=== PATIENT | male | born 1940 | race Caucasian/White ===

== ENCOUNTER 2016-11-14 01:11 | Observation (INO) | payer BC ==
[2016-11-14] VITALS (7 sets, daily range): BP systolic 126–166; BP diastolic 70–84; PULSE 84–92; RESP 16–22; TEMP 97.6–97.8; O2SAT 93–98
[~2016-11-14] VITALS: Ht 170.2 cm; Wt 94.0 kg
[~2016-11-14 01:11] MED LIST: COMB0.2S; DIOV160T60 PO; DORZ1SOL2 OS; GLUCTAB PO; HYDR12.56; OMEP40CA2; PIOG15 PO; PRAV40 PO; ZALE10CA
--- NOTE | 2016-11-14 01:41 | PD ---
HPI Chief Complaint: Syncope/Near-Syncope Time Seen by Provider: 01:17 Travel History International Travel<30 days: No Contact w/Intl Traveler<30days: No Traveled to known affect area: No History of Present Illness HPI 76 year-old male presents to the emergency department from home by EMS transport after syncopal episode. Patient reportedly was up out of bed to go the bathroom and does not recall having a passing out spell. According to senior network engineer report according to the patient's patient was up out of bed to put eyedrops into his eyes and for him so it and she went and saw him unconscious on the floor but he quickly resumed consciousness and was not aware that he had a syncopal episode or how he had fallen onto the floor. Upon senior network engineer arrival patient was noted to have a small laceration to the left posterior occiput region with bleeding controlled. Patient was reportedly estimated to been on the floor for approximately one hour. No active bleeding at the time of evaluation. According to senior network engineer report cervical collar was applied due to mechanisms of injury but not for complaint of pain. Patient was able to perform orthostatic measurements with the paramedics that were is reportedly not significant for variance supine sitting to standing. Patient's had no vomiting. Patient denies any chest pain shortness of breath but has noted swelling to the left upper extremity bilateral lower extremity is. Patient was recently diagnosed with atrial fibrillation and reportedly placed on Eliquis, amiodarone, and diltiazem. Patient does complain of some left elbow pain which she states she's had for some time related to gouty arthritis. Patient at this time denies any head pain neck pain back pain chest pain rib pain shortness of breath abdominal pain or extremity pain but shared with the nurse foot pain 5/10 in intensity. [facility] Past Medical History Narrative Medical Atrial fibrillation, prostate cancer, diabetes, acute renal failure, prostatectomy appendectomy eye surgery; alcohol use; nursing notes reviewed Cancer: Yes (PROSTATE) Cardiovascular Problems: Yes (AFIB) Diabetes: Yes Patient Takes Glucophage: No Diminished Hearing: No Genitourinary: Yes (ARF) Hypertension: Yes Influenza Vaccination: Yes Past Surgical History Appendectomy: Yes Eye Surgery: Yes (DETACTED RETINA) Prostatectomy: Yes Social History Alcohol Use: Yes (4 GLASSES OF WINE PER DAY) Tobacco Use: No Substance Use: No Allergies-Medications (Allergen,Severity, Reaction): Coded Allergies: Iodine (Verified Allergy, Severe, 11/14/16) RESPIRATORY SHOCK Lasix (Verified Allergy, Severe, 11/14/16) Shellfish (Verified Allergy, Severe, Anaphylaxis, 11/14/16) Reported Meds & Prescriptions Reported Meds & Active Scripts Active Reported Eliquis (Apixaban) 5 Mg Tab 5 Mg PO BID Amiodarone (Amiodarone HCl) 200 Mg Tab 200 Mg PO BID Metolazone 5 Mg Tab 5 Mg PO 2XWEEK Omeprazole 40 Mg Cap 40 Mg PO DAILY Prednisone 20 Mg Tab 20 Mg PO DAILY Fluconazole 200 Mg Tab 200 Mg PO DAILY Valacyclovir (Valacyclovir HCl) 500 Mg Tab 500 Mg PO DAILY Review of Systems Except as stated in HPI: all other systems reviewed are Neg General / Constitutional: No: Fever Eyes: No: Visual changes HENT: No: Headaches, Neck Pain Cardiovascular: Positive: Syncope, Edema, No: Chest Pain or Discomfort, Palpitations, Diaphoresis Respiratory: No: Shortness of Breath, Pleuritic Pain Gastrointestinal: No: Nausea, Vomiting, Abdominal Pain Genitourinary: No: Flank Pain Musculoskeletal: Positive: Edema (bilateral lower legs/pedal/left upper extremity), No: Myalgias, Arthralgias Skin: Positive Other (2 cm left posterior occiput laceration), No Rash Neurologic: Positive: Syncope, No: Weakness, Dizziness, Focal Abnormalities, Coordination Problem, Headache, Slurred Speech, Paresthesia, Other Psychiatric: No: Anxiety Hematologic/Lymphatic: Positive: Easy Bruising (Eliquis) Physical Exam Narrative GENERAL: Well-developed well-nourished male in no acute distress no respiratory distress with c-collar in place GCS 15. SKIN: Warm and dry. HEAD: Atraumatic. Normocephalic except for 2 cm linear left posterior occiput laceration without soft tissue swelling bleeding controlled.. EYES: Pupils equal and round. No scleral icterus. No injection or drainage. ENT: No nasal bleeding or discharge. Mucous membranes pink and moist. NECK: Trachea midline. No JVD. Nontender to direct palpation along the cervical spine. CARDIOVASCULAR: Regular rate and rhythm. RESPIRATORY: No accessory muscle use. Clear to auscultation. Breath sounds equal bilaterally. GASTROINTESTINAL: Abdomen soft, non-tender, nondistended. Hepatic and splenic margins not palpable. MUSCULOSKELETAL: Extremities without clubbing, cyanosis, bilateral lower leg and pedal edema as well as left upper extremity edema. No obvious deformities. NEUROLOGICAL: Awake and alert. No obvious cranial nerve deficits. Motor grossly within normal limits. Five out of 5 muscle strength in the arms and legs. Normal speech. PSYCHIATRIC: Appropriate mood and affect; insight and judgment normal. Data Data Last Documented VS Vital Signs Date Time Temp Pulse Resp B/P Pulse Ox O2 Delivery O2 Flow Rate FiO2 11/14/16 02:20 85 16 126/70 98 Room Air 11/14/16 01:24 97.8 Orders Electrocardiogram (11/14/16 01:33) Basic Metabolic Panel (Bmp) (11/14/16 01:33) Complete Blood Count With Diff (11/14/16:33) Magnesium (Mg) (11/14/16:33) Ckmb (Isoenzyme) Profile (11/14/16:33) Troponin I (11/14/16:33) Act Partial Throm Time (Ptt) (11/14/16:33) Prothrombin Time / Inr (Pt) (11/14/16 01:33) Ua Includes Microscopic (11/14/16 01:33) Chest, Single Ap (11/14/16 01:33) Ct Brain W/O Iv Contrast(Rout) (11/14/16 01:33) Ct Cerv Spine W/O Contrast (11/14/16 01:33) Ecg Monitoring (11/14/16 01:33) Iv Access Insert/Monitor (11/14/16 01:33) Oximetry (11/14/16 01:33) Sodium Chloride 0.9% Flush (Ns Flush) (11/14/16 01:45) Vital Signs (Adult) Q4H (11/14/16 02:48) Neuro Checks Q4H (11/14/16 02:48) Activity Bed Rest With Brp (11/14/16 02:48) Payment Manager / Telemetry .CONTINUOUS (11/14/16 02:48) Diet Heart Healthy (11/14/16 Breakfast) Sodium Chloride 0.9% Flush (Ns Flush) (11/14/16 03:00) Sodium Chloride 0.9% Flush (Ns Flush) (11/14/16 09:00) Acetaminophen (Tylenol) (11/14/16 03:00) Ondansetron Inj (Zofran Inj) (11/14/16 03:00) Creatine Kinase (Cpk) (11/14/16 08:00) Creatine Kinase (Cpk) (11/14/16 14:00) Troponin I (11/14/16 08:00) Troponin I (11/14/16 14:00) Electrocardiogram (11/14/16 08:00) Electrocardiogram (11/14/16 14:00) Scd Bilateral/Knee High MANASA.BID (11/14/16 02:48) Naloxone Inj (Narcan Inj) (11/14/16 03:00) Orthostatic Vital Signs (11/14/16 02:48) Amiodarone (Cordarone) (11/14/16 09:00) Prednisone (Deltasone) (11/14/16 09:00) Pantoprazole (Protonix) (11/14/16 09:00) Admit Order (Ed Use Only) (11/14/16 ) ^ Saline Lock (11/14/16 02:53) Resp Oxygen Amari C Titrat 1-4 L (11/14/16 ) Notify Dr: Other (11/14/16 02:53) Sodium Chloride 0.9% Flush (Ns Flush) (11/14/16 09:00) Sodium Chloride 0.9% Flush (Ns Flush) (11/14/16 03:00) Labs Laboratory Tests Test 11/14/16 01:45 White Blood Count 6.7 TH/MM3 Red Blood Count 2.93 MIL/MM3 Hemoglobin 10.6 GM/DL Hematocrit 31.5 % Mean Corpuscular Volume 107.6 FL Mean Corpuscular Hemoglobin 36.1 PG Mean Corpuscular Hemoglobin 33.6 % Concent Red Cell Distribution Width 15.5 % Platelet Count 194 TH/MM3 Mean Platelet Volume 7.7 FL Neutrophils (%) (Auto) 67.7 % Lymphocytes (%) (Auto) 23.5 % Monocytes (%) (Auto) 8.4 % Eosinophils (%) (Auto) 0.0 % Basophils (%) (Auto) 0.4 % Neutrophils # (Auto) 4.5 TH/MM3 Lymphocytes # (Auto) 1.6 TH/MM3 Monocytes # (Auto) 0.6 TH/MM3 Eosinophils # (Auto) 0.0 TH/MM3 Basophils # (Auto) 0.0 TH/MM3 CBC Comment AUTO DIFF Differential Total Cells 100 Counted Neutrophils % (Manual) 65 % Band Neutrophils % 8 % Lymphocytes % 18 % Monocytes % 6 % Neutrophils # (Manual) 5.1 TH/MM3 Metamyelocytes 2 % Myelocytes 1 % Nucleated Red Blood Cells 9 /100 WBC Differential Comment FINAL DIFF MANUAL Platelet Estimate NORMAL Platelet Morphology Comment NORMAL Prothrombin Time 11.4 SEC Prothromb Time International 1.0 RATIO Ratio Activated Partial 23.3 SEC Thromboplast Time Sodium Level 135 MEQ/L Potassium Level 3.9 MEQ/L Chloride Level 101 MEQ/L Carbon Dioxide Level 20.4 MEQ/L Anion Gap 14 MEQ/L Blood Urea Nitrogen 23 MG/DL Creatinine 1.07 MG/DL Estimat Glomerular Filtration 67 ML/MIN Rate Random Glucose 290 MG/DL Calcium Level 9.1 MG/DL Magnesium Level 1.8 MG/DL Total Creatine Kinase 39 U/L Troponin I LESS THAN 0.02 NG/ML MDM Medical Decision Making Medical Screen Exam Complete: Yes Emergency Medical Condition: Yes Medical Record Reviewed: Yes Interpretation(s) EKG: Atrial fibrillation rate 84 right bundle branch block no acute ST elevation or injury pattern change noted Vital Signs Date Time Temp Pulse Resp B/P Pulse Ox O2 Delivery O2 Flow Rate FiO2 11/14/16 02:20 85 16 126/70 98 Room Air 11/14/16 01:24 97.8 85 17 159/77 93 Room Air CBC & BMP Diagram 11/14/16 01:45 Differential Diagnosis Syncope, arrhythmia, ICH, CHI, vasovagal syncope, ACS, myocardial infarction, anemia Narrative Course Patient placed on financial services assistant IV access obtained specimens collected and sent for resulting Imaging studies ordered Patient sent to CT for CT brain noncontrast and CT cervical spine noncontrast Patient return from CT he feels well voicing no concerns or complaints at bedside Tetanus status less than 10 years and injury occurred indoors in a non-tetanus prone environment for his fall c-collar removed by me Laceration site cleansed and wound adhesive applied Procedures Procedure Narrative LACERATION LOCATION: Left posterior scalp LENGTH: 2 cm NUMBER OF STITCHES/GONZALEZ: Wound adhesive REPAIR: The area of the laceration was prepped with Betadine and sterilely draped. The wound was copiously irrigated and explored without evidence of foreign body, tendon injury or neurovascular injury. The wound was closed using wound adhesive. This was a single layer repair. The patient was advised to keep the site clean and dry. Patient tolerated the procedure well. Physician Communication Physician Communication call placed to [facility] for Dr Jerez--darío Vieira -- admit obs to Dr Serrano Diagnosis Primary Impression: Syncope Qualified Code: R55 - Syncope, unspecified syncope type Additional Impression: Afib Qualified Code: I48.91 - Atrial fibrillation, unspecified type Admitting Information Admitting Physician Requests: Observation Bisi Landry MD Nov 14, 2016 01:41
[2016-11-14] MEDS ORDERED: SODIUM CHLORIDE 0.9% FLUSH 10 ML FLUSH IVF PRN ×2 (01:45→03:00)
[2016-11-14 02:03] LABS: AUTOMATED NEUTROPHIL # 4.5 TH/MM3 (1.8-7.7); BASOPHIL % 0.4 % (0.0-2.0); HEMATOCRIT 31.5 % (39.0-51.0); LYMPH % 23.5 % (9.0-44.0); LYMPHOCYTE # 1.6 TH/MM3 (1.0-4.8); MEAN CELL VOLUME 107.6 FL (80.0-100.0); MEAN CORPUSCULAR HEMOGLOBIN 36.1 PG (27.0-34.0); MEAN CORPUSCULAR HGB CONC 33.6 % (32.0-36.0); MONO % 8.4 % (0.0-8.0); NEUT % 67.7 % (16.0-70.0); PLATELET COUNT 194 TH/MM3 (150-450); RED BLOOD COUNT 2.93 MIL/MM3 (4.50-5.90); RED CELL DISTRIBUTION WIDTH 15.5 % (11.6-17.2); WHITE BLOOD COUNT 6.7 TH/MM3 (4.0-11.0)
[2016-11-14 02:06] LABS: HEMO FLAGS AUTO DIFF
--- NOTE | 2016-11-14 02:07 | RADRPT ---
EXAM DATE/TIME: 11/14/2016 01:49 [facility] COMPARISON: CT BRAIN W/O CONTRAST, December 24, 2010, 11:57. INDICATIONS : Syncopal episode. Laceraction to posterior head. Started a blood thinner 2 days ago. RADIATION DOSE: 39.53 CTDIvol (mGy) MEDICAL HISTORY : Hypertension. Diabetes mellitus type 2. Carcinoma, prostate.Asthma. SURGICAL HISTORY : Appendectomy. ENCOUNTER: Initial ACUITY: 1 day PAIN SCALE: 6/10 LOCATION: cranial TECHNIQUE: Multiple contiguous axial images were obtained of the head. Using automated exposure control and adj ustment of the mA and/or kV according to patient size, radiation dose was kept as low as reasonably a chievable to obtain optimal diagnostic quality images. FINDINGS: CEREBRUM: The ventricles are normal for age. No evidence of midline shift, mass lesion, hemorrhage or acute in farction. No extra-axial fluid collections are seen. POSTERIOR FOSSA: The cerebellum and brainstem are intact. The 4th ventricle is midline. The cerebellopontine angle i s unremarkable. EXTRACRANIAL: Small posterior parietal scalp hematoma. SKULL: The calvaria is intact. No evidence of skull fracture. CONCLUSION: Left posterior parietal scalp contusion. No fracture or intracranial bleed. Danyel Loco MD on November 14, 2016 at 2:05 Board Certified Radiologist. This report was verified electronically.
--- NOTE | 2016-11-14 02:10 | RADRPT ---
EXAM DATE/TIME: 11/14/2016 01:49 [facility] COMPARISON: No previous studies available for comparison. INDICATIONS : Syncopal episode. Laceration to posterior head. RADIATION DOSE: 21.60 CTDIvol (mGy) MEDICAL HISTORY : Hypertension. Diabetes mellitus type 2. Carcinoma, prostate.Asthma. SURGICAL HISTORY : Appendectomy. ENCOUNTER: Initial ACUITY: 1 day PAIN SCALE: 0/10 LOCATION: neck TECHNIQUE: Volumetric scanning of the cervical spine was performed. Multiplanar reconstructions in the sagittal, coronal and oblique axial planes were performed. Using automated exposure control and adjustment o f the mA and/or kV according to patient size, radiation dose was kept as low as reasonably achievable to obtain optimal diagnostic quality images. FINDINGS: VERTEBRAE: Normal vertebral body height. ALIGNMENT: No evidence of subluxation. 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 C2-C3: The bony spinal canal is normal in size. No evidence of disc bulge or herniation. The neural forami na are bilaterally patent. C3-C4: The bony spinal canal is normal in size. No evidence of disc bulge or herniation. The neural forami na are bilaterally patent. C4-C5: The bony spinal canal is normal in size. No evidence of disc bulge or herniation. The neural forami na are bilaterally patent. C5-C6: The bony spinal canal is normal in size. No evidence of disc bulge or herniation. The neural forami na are bilaterally patent. C6-C7: The bony spinal canal is normal in size. No evidence of disc bulge or herniation. The neural forami na are bilaterally patent. C7-T1: The bony spinal canal is normal in size. No evidence of disc bulge or herniation. The neural forami na are bilaterally patent. CONCLUSION: No fracture or subluxation of the cervical spine. Danyel Loco MD on November 14, 2016 at 2:07 Board Certified Radiologist. This report was verified electronically.
--- NOTE | 2016-11-14 02:10 | RADRPT ---
EXAM DATE/TIME: 11/14/2016 01:36 [facility] COMPARISON: No previous studies available for comparison. INDICATIONS : Shortness of breath. MEDICAL HISTORY : Hypertension. Diabetes mellitus type II. Carcinoma, prostatic. Asthma SURGICAL HISTORY : Appendectomy. ENCOUNTER: Initial ACUITY: 1 day PAIN SCORE: 0/10 LOCATION: Bilateral chest FINDINGS: A single view of the chest demonstrates the lungs to be symmetrically aerated without evidence of mas s, infiltrate or effusion. The cardiomediastinal contours are unremarkable. Osseous structures are intact. CONCLUSION: No evidence of acute cardiopulmonary disease. Danyel Loco MD on November 14, 2016 at 2:09 Board Certified Radiologist. This report was verified electronically.
[2016-11-14 02:17] LABS: APTT (PATIENT) 23.3 SEC (24.3-30.1); PROTHROMBIN TIME - PATIENT 11.4 SEC (9.8-11.6)
[2016-11-14] MEDS ORDERED: OMEP40CA2 PO (02:27)
[2016-11-14] MEDS ORDERED: PRED20 PO (02:27)
[2016-11-14] MEDS ORDERED: VALA500T PO (02:27)
[2016-11-14] MEDS ORDERED: FLUC200T2 PO (02:27)
[2016-11-14] MEDS ORDERED: APIX5TAB PO (02:27)
[2016-11-14] MEDS ORDERED: METO5TAB3 PO (02:27)
[2016-11-14] MEDS ORDERED: AMIO200T PO (02:27)
[2016-11-14 02:28] LABS: ANION GAP 14 MEQ/L (5-15); BICARBONATE 20.4 MEQ/L (21.0-32.0); BLOOD UREA NITROGEN 23 MG/DL (7-18); CHLORIDE 101 MEQ/L (98-107); GLOMERULAR FILTRATION RATE 67 ML/MIN (>89); MAGNESIUM 1.8 MG/DL (1.5-2.5); POTASSIUM 3.9 MEQ/L (3.5-5.1); SODIUM (NA) 135 MEQ/L (136-145)
[2016-11-14 02:29] LABS: CREATINE KINASE 39 U/L (39-308)
[2016-11-14 02:42] LABS: BANDS 8 % (0-6); CORRECTED NUCLEATED RBC 9 /100 WBC (0-0); METAMYELOCYTES 2 % (0-1); MYELOCYTES 1 % (0-0); NEUTROPHIL # MANUAL DIFF 5.1 TH/MM3 (1.8-7.7); POLYS (SEG NEUTROPHILS) 65 % (16-70); WBC DIFF SAMPLE 100
[2016-11-14 02:44] LABS: PLATELET ESTIMATE SMEAR NORMAL (NORMAL); PLATELET MORPHOLOGY NORMAL (NORMAL); SCAN/DIFF FINAL DIFF MANUAL
[2016-11-14] MEDS ORDERED: ONDANSETRON HCL 4 MG/2 ML VIAL IVP PRN (03:00)
[2016-11-14] MEDS ORDERED: NALOXONE HCL 0.4 MG/ML AMP IV PRN (03:00)
[2016-11-14] MEDS ORDERED: SODIUM CHLORIDE 0.9% FLUSH 10 ML FLUSH IV FLUSH PRN (03:00)
[2016-11-14] MEDS ORDERED: ACETAMINOPHEN 325 MG TAB PO PRN (03:00)
[2016-11-14 04:22] LABS: BLOOD, URINE NEG (NEG); GLUCOSE,URINE 1000 mg/dL (NEG); KETONE, URINE NEG (NEG); NITRITE,URINE NEG (NEG); SQUAMOUS EPITHELIAL CELL URINE <1 /hpf (0-5); URINE COLOR LIGHT-YELLOW (YELLW/STRAW)
[2016-11-14] MEDS ORDERED: PANTOPRAZOLE SOD 40 MG DELAYED RELEASE TAB PO SCH (09:00)
[2016-11-14] MEDS ORDERED: SODIUM CHLORIDE 0.9% FLUSH 10 ML FLUSH IV FLUSH SCH ×2 (09:00)
[2016-11-14] MEDS ORDERED: AMIODARONE 200 MG TAB PO SCH (09:00)
[2016-11-14] MEDS ORDERED: predniSONE 20 MG TAB PO SCH (09:00)
--- NOTE | 2016-11-14 18:44 | EKG ---
Date Performed: 11/14/2016 Time Performed: 01:18:19 PTAGE: 76 years EKG: ATRIAL FIBRILLATION RIGHT BUNDLE BRANCH BLOCK ABNORMAL ECG PREVIOUS TRACING : 12/24/2010 10.30 Compared to the previous tracing SR no longer present DOCTOR: Jc Brewster Interpretating Date/Time 11/14/2016 18:43:42
--- NOTE | 2016-11-15 10:02 | MD ---
ADMISSION DATE: 11/14/2016 DISCHARGE DATE: 11/14/2016 HISTORY OF PRESENT ILLNESS The patient is a 76-year-old white male who was brought in by EMS after syncopal episode. While talking to the patient, the patient told me that while he was applying drops in his eyes he lost balance and fell down. He did not lose consciousness, was not having any dizziness or any syncope, no chest pain, no shortness of breath, no nausea, vomiting or diarrhea, no palpitations, no fever, no weakness. In the ER a small laceration was noted on the back of the scalp which was cleaned with Betadine and wound adhesive was applied. The patient had a head CT done which showed parietal scalp contusion, no fracture or intracranial bleed. He had a chest x-ray which did not show any evidence of acute cardiopulmonary disease and a cervical spine x-ray which showed no fracture or subluxation of the cervical spine. The patient's WBC was 6.7, hemoglobin 10.6, hematocrit 31.5, platelets were 194,000. His BUN was 23, creatinine 1.07. His troponin-I was less than 0.02, magnesium was 1.8, random blood glucose was 290. EKG showed atrial fibrillation at a rate of 84, no acute ST or T-wave changes. The patient's blood pressure was 126/70, respirations 16, pulse was 85, pulse ox was 98% on room air. Discussed with the patient and the , they wanted to go home. As the patient is clinically stable for discharge, he was discharged home to followup with primary care physician in one week. Per patient he has an appointment on . DISCHARGE DISPOSITION Home. DISCHARGE CONDITION Stable. DISCHARGE MEDICATIONS Continue all the home medications, no changes. FOLLOWUP Followup with primary care physician in one week. Spent more than 45minutes in taking history and dictation. January Serrano MD SR/TANA /10:23 AM /9:59 AM CARM[facility]
== END 2016-11-14 11:41 | disposition home or self-care (01) ==
LOC: NEPC 01:11 → NEDA 02:55 → NEPGCP 04:54
PROVIDERS: ADMIT Family Medicine; ATTEND Family Medicine
DX: R55 Syncope and collapse (principal); S01.01XA Laceration without foreign body of scalp, initial encounter; I48.91 Unspecified atrial fibrillation; E11.9 Type 2 diabetes mellitus without complications; N17.9 Acute kidney failure, unspecified; I10 Essential (primary) hypertension; Z85.46 Personal history of malignant neoplasm of prostate; Z79.01 Long term (current) use of anticoagulants; W18.30XA Fall on same level, unspecified, initial encounter; Z88.8 Allergy status to other drugs, medicaments and biological substances; Z91.013 Allergy to seafood
CPT/HCPCS: 12001; 70450; 71010; 72125; 80048; 81001; 82550; 82948; 83735; 84484; 85007; 85027; 85610; 85730; 93005; 99285; G0378; J7512